=== PATIENT | female | born 1975 | race Caucasian/White ===

== ENCOUNTER → 2020-08-12 | Outpatient (CLI) | payer BC ==
[~2020-08-12] MED LIST: CPR500T PO; DICY20TA57 PO; METR500T PO
--- NOTE | 2020-08-12 12:02 | Diagnostic Imaging Report ---
INDICATION: Postmenopausal female. Family history of osteoporosis. COMPARISON: None FINDINGS: AP Spine L2-L4: [BMD (g/cm2): 0.731] [T-Score: -3.9] [Z-Score: -3.6] [BMD Previous: na] [BMD % Change: na] LT Hip Neck: [BMD (g/cm2): 0.662] [T-Score: -2.7] [Z-Score: -2.0] LT Hip Total: [BMD (g/cm2):0.641] [T-Score:-2.9] [Z-Score: -2.4] [BMD Previous: na] [BMD % Change: na] RT Hip Neck: [BMD (g/cm2):0.634] [T-Score:-2.9] [Z-Score:-2.2] RT Hip Total: [BMD (g/cm2):0.662] [T-score:-2.7] [Z-Score:-2.3] [BMD Previous:na] [BMD % Change:na] *Indicates significant change from prior examination based on 95% confidence level. World Health Organization criteria for BMD interpretation classify patients as Normal (T-score at or above -1.0), Osteopenic (T-score between -1.0 and -2.5) or Osteoporotic (T-score at or below -2.5). LIMITATIONS AND MODIFICATION: None. FRACTURE RISK (FRAX SCORE): The ten year probability of (%): Major Osteoporotic Fracture: [na] Hip Fracture: [na] IMPRESSION: 1. Osteoporosis. 2. Baseline examination. 3. See below National Osteoporosis Foundation guidelines on when to potentially initiate pharmacologic therapy. Based on the National Osteoporosis Foundation Guidelines, pharmacologic treatment should be initiated in any of the following, unless clinical conditions suggest otherwise: * Any patient with prior fragility fracture of the hip or vertebrae. A spine fracture indicates 5X risk for subsequent spine fracture and 2X risk for subsequent hip fracture. * Osteoporosis (T-score <-2.5). * Postmenopausal women and men age 50 and older with low bone mass/osteopenia (T-score between -1.0 and -2.5) by DXA and 10-year major osteoporotic fracture greater than 20% or a 10-year probability of hip fracture greater than 3%. These fracture risks are supplied above in the FRAX score, if applicable. * Clinician judgement and/or patient preferences may indicate treatment for people with 10-year fracture probabilities above or below these levels. Dictated by: Dictated on workstation # [id number]
== END ==
LOC: RAD 10:30
PROVIDERS: ATTEND Family Medicine
DX: M81.0 Age-related osteoporosis without current pathological fracture (principal)
CPT/HCPCS: 77080

== ENCOUNTER 2021-01-09 20:26 | Emergency (ER) | payer BC ==
--- NOTE | 2021-01-09 20:38 | ED GU-Female ---
General Stated Complaint: UNABLE TO URINATE,PELVIC PRESSURE Source: patient History of Present Illness Date Seen by Provider: Jan 09, 2021 Time Seen by Provider: 20:29 Initial Comments 45 yo female presents with complaints of difficulty urinating today. She states since early this am around 5 am she has only been able to urinate small dribbles of urine. She has not been able to urinate at all in last few hours. She feels like she has to urinate and has pressure but can not pass any urine. She denies any vaginal bleeding or discharge. She has been feeling fine otherwise and denies nausea, vomiting, diarrhea, fever, chills, abdominal pain other than the pressure that she feels like she needs to urinate. She has had Zyrtec 2 nights ago and took Benadryl last night for her allergies. She has had similar symptoms with urinary retention in the past after surgeries but has had no recent surgeries. Timing/Duration: this morning, getting worse Severity/Quality: moderate (pressure like she has to urinate) Location: suprapubic Radiation: none Activities at Onset: none Prior Genitourinary Problems: similar symptoms (with retention after surgeries) Associated Symptoms: No abdominal pain, No diaphoresis, No dysuria, No fever/chills, No loss of bladder control, No lower back pain, No lumps, No mass, No nausea/vomiting, No nocturia, No polyuria, No swelling, No syncope, No urinary frequency Allergies and Home Medications Allergies Coded Allergies: Codeine (Verified Allergy, Mild, redness, 05/22/13) fentanyl (Verified Adverse Reaction, Intermediate, seizure, 05/22/13) Sulfa (Sulfonamide Antibiotics) (Verified Adverse Reaction, Mild, 05/22/13) acetaminophen (Verified Adverse Reaction, Mild, rash, 05/22/13) escitalopram oxalate (Verified Adverse Reaction, Mild, N/V, 05/22/13) morphine (Verified Adverse Reaction, Mild, redness, 05/22/13) oxycodone HCl (Verified Adverse Reaction, Mild, rash, 05/22/13) prochlorperazine edisylate (Verified Adverse Reaction, Mild, 05/22/13) unknown reaction prochlorperazine maleate (Verified Adverse Reaction, Mild, 05/22/13) unknown reaction Home Medications Ciprofloxacin 500 Mg Tablet, 1 TAB PO BID Prescribed by: GENESIS CASILLAS on 05/22/131755 Dicyclomine Hcl 20 Mg Tablet, 1 EACH PO Q6H Prescribed by: GENESIS CASILLAS on 05/22/131755 Metronidazole 500 Mg Tab, 1 EACH PO BID Prescribed by: GENESIS CASILLAS on 05/22/131755 Patient Home Medication List Home Medication List Reviewed: Yes Review of Systems Review of Systems Constitutional: No chills, No fever EENTM: nose congestion (allergies) Respiratory: no symptoms reported Cardiovascular: no symptoms reported Gastrointestinal: see HPI Genitourinary: see HPI Musculoskeletal: no symptoms reported Skin: no symptoms reported Psychiatric/Neurological: No Symptoms Reported Endocrine: No Symptoms Reported Hematologic/Lymphatic: No Symptoms Reported Past Pbdksho-Ebocyd-Flcxal Hx Past Med/Social Hx: Reviewed Nursing Past Med/Soc Hx Past Medical History Surgeries: Yes Hysterectomy Reproductive Disorders: No Female Reproductive Disorders: Endometriosis 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 oz. 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 as tested, alert, oriented x 3 Skin: normal color, warm/dry Progress/Results/Core Measures Suspected Sepsis SIRS Temperature: Pulse: Respiratory Rate: Blood Pressure / Mean: Results/Orders Lab Results Laboratory Tests Test 01/09/21 20:42 Range/Units Urine Color YELLOW Urine Clarity CLEAR Urine pH 6.5 5-9 Urine Specific [place] 1.025 H 1.016-1.022 Urine Protein NEGATIVE NEGATIVE Urine Glucose (UA) NEGATIVE NEGATIVE Urine Ketones NEGATIVE NEGATIVE Urine Nitrite NEGATIVE NEGATIVE Urine Bilirubin NEGATIVE NEGATIVE Urine Urobilinogen 0.2 < = 1.0 MG/DL Urine Leukocyte Esterase NEGATIVE NEGATIVE Urine RBC (Auto) NEGATIVE NEGATIVE Urine RBC NONE /HPF Urine WBC 0-2 /HPF Urine Squamous Epithelial Cells 5-10 /HPF Urine Crystals NONE /LPF Urine Bacteria TRACE /HPF Urine Casts NONE /LPF Urine Mucus LARGE H /LPF Urine Culture Indicated NO My Orders Orders - NATAN BUENROSTRO MD Bladder Scan (01/09/21 20:30) Straight Cath For Spec.-Adult (01/09/21 20:38) Ua Culture If Indicated (01/09/21 20:38) Vital Signs/I&O 01/09/21 01/09/21 20:30 21:05 Temp 36.0 36.0 Pulse 88 88 Resp 16 16 B/P (MAP) 157/93 (114) 157/93 (114) Pulse Ox 100 100 O2 Delivery Room Air Room Air Capillary Refill : Progress Note #1: Progress Note bladder scan does not show retention and pt has around 50-60 mL of urine. She was able to provide a small urine specimen so will check to see if she might have UTI causing her to dribble and only be able to go small amounts. If that is negative will discuss with her options of IV with fluid bolus here and labs to check renal and hepatic function. Otherwise if positive for infection will treat for UTI. Progress Note #2: Time: 20:52 Progress Note UA shows mild elevation of specific gravity and some mucus but no infection. Counseled pt on results and discussed option of IV and fluid bolus but she did not want to try that yet. She would like to push fluids and see how things go in next 12 to 24 hours. Counseled that she could try AZO or Urostat over the counter to try and help with pressure sensation like she has to urinate or I could prescribe Pyridium but she also declined that. Counseled to return or seek medical care if symptoms worsen or do not improve over next 1-2 days Departure Impression Primary Impression: Urinary hesitancy Additional Impression: Decreased urine output Disposition: HOME, SELF-CARE Condition: Stable Departure-Patient Inst. Decision time for Depature: 21:01 Referrals: HEIDE DUMONT MD (PCP/Family) Primary Care Physician Patient Instructions: Bladder Irritants Add. Discharge Instructions: Continue to try drinking more water and cranberry juice to help with hydration. Avoid carbonated and caffeinated drinks as these can irritate your bladder and are not the best to hydrate you. For the pressure sensation of needing to urinate you could try AZO over the counter. This can turn your urine an orange-red color while you take the medicine. If you have worsening symptoms or do not improve within next 24 to 48 hours then seek medical care to get recheck of urine and bladder. NATAN BUENROSTRO MD Jan 09, 2021 20:38
[2021-01-09 20:49] LABS: BACTERIA,URINE TRACE /HPF; BILIRUBIN,URINE NEGATIVE (NEGATIVE); CLARITY,URINE CLEAR; COLOR,URINE YELLOW; GLUCOSE, URINE (UA) NEGATIVE (NEGATIVE); KETONES,URINE NEGATIVE (NEGATIVE); LEUKOCYTE ESTERASE ,URINE NEGATIVE (NEGATIVE); NITRITE,URINE NEGATIVE (NEGATIVE); PH,URINE 6.5 (5-9); PROTEIN,URINE NEGATIVE (NEGATIVE); WBC,URINE 0-2 /HPF
[2021-01-09 21:05] VITALS: BP 157/93
== END 2021-01-09 21:06 | disposition home or self-care (01) ==
LOC: EDUNIT# 20:26 → ER FS 20:28
DX: R39.11 Hesitancy of micturition (principal); R39.12 Poor urinary stream; Z88.5 Allergy status to narcotic agent; Z88.2 Allergy status to sulfonamides; Z88.8 Allergy status to other drugs, medicaments and biological substances
CPT/HCPCS: 81000; 99283

== ENCOUNTER 2021-11-04 17:29 | Emergency (ER) | payer BC ==
[~2021-11-04] VITALS: Ht 170 cm; Wt 54.0 kg
[2021-11-04] MEDS ORDERED: KETOROLAC 30 MG/ML VIAL IVP STA (17:51)
[2021-11-04] MEDS ORDERED: NS IV 1000 ML 1,000 ML IV STA (17:51)
[2021-11-04] MEDS ORDERED: FAMOTIDINE 20MG/2ML IV (PEPCID) IV STA (17:51)
--- NOTE | 2021-11-04 17:56 | ED GI ---
General Chief Complaint: Abdominal/GI Problems Stated Complaint: GUM SWELLING,CP,VOMITTING,RT SIDE ABD PAIN Nursing Triage Note: PT REPORTS RIGHT UPPER QUAD PAIN THAT WRAPS AROUND TO HER BACK FOR 5 DAYS. REPORTS IT STARTED AFTER SHE ATE A JALAPENO BURGER. REPORTS VOMITING AFTER ANY MEALS AND LOOSE GREEN STOOLS. Source of Information: Patient Exam Limitations: No Limitations History of Present Illness Date Seen by Provider: Nov 04, 2021 Time Seen by Provider: 17:43 Initial Comments Here with right upper quadrant abdominal pain this been going on for the last 5 days. She was seen by Dr. Herzog and has appointment for ultrasound tomorrow due to concerns for gallbladder. Noticed that she has had some loose stools that are green and pain is worse anytime she eats. Has had vomiting after any meal. Timing/Duration: 5-6 Days, Getting Worse Severity/Quality: Moderate, Aching Location: RUQ Radiation: Back Activities at Onset: None Modifying Factors: Worsens With Eating Associated Symptoms: Back Pain; No Chest Pain, No Fever/Chills; Heartburn, Nausea/Vomiting; No Shortness of Air, No Weakness Allergies and Home Medications Allergies Coded Allergies: codeine (Verified Allergy, Mild, redness, 05/22/13) fentanyl (Verified Adverse Reaction, Intermediate, seizure, 05/22/13) Sulfa (Sulfonamide Antibiotics) (Verified Adverse Reaction, Mild, 05/22/13) escitalopram oxalate (Verified Adverse Reaction, Mild, N/V, 05/22/13) morphine (Verified Adverse Reaction, Mild, redness, 05/22/13) oxycodone HCl (Verified Adverse Reaction, Mild, rash, 05/22/13) prochlorperazine edisylate (Verified Adverse Reaction, Mild, 05/22/13) unknown reaction prochlorperazine maleate (Verified Adverse Reaction, Mild, 05/22/13) unknown reaction Patient Home Medication List Home Medication List Reviewed: Yes Ciprofloxacin (Cipro) 500 Mg Tablet, 1 TAB PO BID Prescribed by: GENESIS CASILLAS on 05/22/131755 Dicyclomine Hcl (Bentyl) 20 Mg Tablet, 1 EACH PO Q6H Prescribed by: GENESIS CASILLAS on 05/22/131755 Metronidazole (Flagyl 500 Mg) 500 Mg Tab, 1 EACH PO BID Prescribed by: GENESIS CASILLAS on 05/22/131755 Review of Systems Review of Systems Constitutional: see HPI EENTM: No Nose Congestion, No Throat Pain Respiratory: Denies Cough, Denies Shortness of Air Cardiovascular: No Symptoms Reported Gastrointestinal: Abdominal Pain, Diarrhea, Nausea, Vomiting Genitourinary: No Symptoms Reported Musculoskeletal: back pain; No muscle pain Skin: no symptoms reported Psychiatric/Neurological: No Symptoms Reported All Other Systems Reviewed Negative Unless Noted: Yes Past Zstqsqg-Obazmj-Hdrbgx Hx Patient Social History Tobacco Use?: No Use of E-Cig and/or Vaping dev: No Substance use?: No Alcohol Use?: No Pt feels they are or have been: No Past Medical History Surgery/Hospitalization HX: TONSILS, APPY, HYST Surgeries: Yes Hysterectomy Reproductive Disorders: No Female Reproductive Disorders: Endometriosis 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 oz. 49.118939zl; 18.00 BMI Method:Stated General Appearance: WD/WN, no apparent distress HEENT: PERRL/EOMI, pharynx normal Neck: full range of motion, supple Respiratory: lungs clear, normal breath sounds Cardiovascular: regular rate, rhythm, no murmur Gastrointestinal: soft, tenderness (Right upper quadrant) Extremities: non-tender, normal inspection Back: normal inspection, no CVA tenderness, no vertebral tenderness Neurologic/Psychiatric: alert, oriented x 3 Skin: normal color, warm/dry Progress/Results/Core Measures Results/Orders Lab Results Laboratory Tests Test 11/04/21 17:49 Range/Units White Blood Count 6.9 4.3-11.0 10^3/uL Red Blood Count 4.61 3.80-5.11 10^6/uL Hemoglobin 13.7 11.5-16.0 g/dL Hematocrit 40 35-52 % Mean Corpuscular Volume 86 80-99 fL Mean Corpuscular Hemoglobin 30 25-34 pg Mean Corpuscular Hemoglobin Concent 34 32-36 g/dL Red Cell Distribution Width 11.9 10.0-14.5 % Platelet Count 224 130-400 10^3/uL Mean Platelet Volume 10.1 9.0-12.2 fL Immature Granulocyte % (Auto) 0 % Neutrophils (%) (Auto) 49 42-75 % Lymphocytes (%) (Auto) 40 12-44 % Monocytes (%) (Auto) 9 0-12 % Eosinophils (%) (Auto) 2 0-10 % Basophils (%) (Auto) 1 0-10 % Neutrophils # (Auto) 3.4 1.8-7.8 10^3/uL Lymphocytes # (Auto) 2.7 1.0-4.0 10^3/uL Monocytes # (Auto) 0.6 0.0-1.0 10^3/uL Eosinophils # (Auto) 0.1 0.0-0.3 10^3/uL Basophils # (Auto) 0.1 0.0-0.1 10^3/uL Immature Granulocyte # (Auto) 0.0 0.0-0.1 10^3/uL Sodium Level 140 135-145 MMOL/L Potassium Level 3.8 3.6-5.0 MMOL/L Chloride Level 104 98-107 MMOL/L Carbon Dioxide Level 23 21-32 MMOL/L Anion Gap 13 5-14 MMOL/L Blood Urea Nitrogen 15 7-18 MG/DL Creatinine 0.87 0.60-1.30 MG/DL Estimat Glomerular Filtration Rate 84 BUN/Creatinine Ratio 17 Glucose Level 111 H 70-105 MG/DL Calcium Level 9.8 8.5-10.1 MG/DL Corrected Calcium 9.4 8.5-10.1 MG/DL Magnesium Level 2.3 1.6-2.4 MG/DL Total Bilirubin 1.0 0.1-1.0 MG/DL Aspartate Amino Transf (AST/SGOT) 14 5-34 U/L Alanine Aminotransferase (ALT/SGPT) 12 0-55 U/L Alkaline Phosphatase 128 40-136 U/L C-Reactive Protein < 0.30 <0.50 MG/DL Total Protein 7.7 6.4-8.2 GM/DL Albumin 4.5 3.2-4.5 GM/DL Lipase 32 8-78 U/L My Orders Orders - ANEL PEPE MD Cbc With Automated Diff (11/04/21 17:51) Comprehensive Metabolic Panel (11/04/21 17:51) Lipase (11/04/21 17:51) Magnesium (11/04/21 17:51) Crp Fs (11/04/21 17:51) Ondansetron Injection (Zofran Injectio (11/04/21 18:00) Ns Iv 1000 Ml (Sodium Chloride 0.9%) (11/04/21 17:51) Famotidine Injection (Pepcid Injection) (11/04/21 17:51) Ed Iv/Invasive Line Start (11/04/21 17:51) Ketorolac Injection (Toradol Injection) (11/04/21 17:51) Hydromorphone Injection (Dilaudid Inject (11/04/21 18:00) Pantoprazole Injection (Protonix Injecti (11/04/21 18:45) Medications Given in ED Current Medications Medications Dose Ordered Sig/Thalia Route Start Time Stop Time Status Last Admin Dose Admin Hydromorphone HCl 0.25 mg ONCE ONCE IV 11/04/21 18:00 11/04/21 18:01 DC 11/04/21 18:02 0.25 MG Ondansetron HCl 4 mg ONCE ONCE IVP 11/04/21 18:00 11/04/21 18:01 DC 11/04/21 17:59 4 MG Pantoprazole 40 mg ONCE ONCE IV 11/04/21 18:45 11/04/21 18:46 DC 11/04/21 18:46 40 MG Vital Signs/I&O 11/04/21 11/04/21 17:34 19:00 Temp 36.3 Pulse 75 60 Resp 18 17 B/P (MAP) 149/79 (102) 126/70 Pulse Ox 99 100 O2 Delivery Room Air Room Air Blood Pressure Mean: 102 Progress Progress Note : Progress Note Seen and evaluated. IV, labs, normal saline 1 L bolus, Zofran 4 mg IV, Toradol 30 mg IV, Dilaudid 0.25 mg IV and Pepcid 20 mg IV ordered. Monitor patient. 1 924: I have also added Protonix 40 mg IV. Overall she is currently better now. I have discussed the case with Dr. Ibrahim and he would like to see her on Tuesday for recheck and further evaluation. She does have ultrasound scheduled tomorrow which she will keep that appointment. Labs are nonconcerning. This still could be gallstones versus ulcerative disease. We will continue acid reduction on her as an outpatient and wait for results from the ultrasound and she will follow up with Dr. Ibrahim. Overall she feels better to go home. Discharged home with return precautions. Patient verbalized understanding of instructions and agr eement with plan. Departure Impression Primary Impression: Right upper quadrant abdominal pain Disposition: HOME, SELF-CARE Condition: Improved Departure-Patient Inst. Decision time for Depature: 19:25 Referrals: KENNETH HERZOG MD (PCP) Primary Care Physician HEIDE DUMONT MD (Family) Primary Care Physician ALLAN IBRAHIM DO Patient Instructions: Gallstones, Nausea and Vomiting, Adult ED, Peptic Ulcers (DC), Severe Abdominal Pain, Adult (DC) Add. Discharge Instructions: All discharge instructions reviewed with patient and/or family. Voiced u nderstanding. Clear or light diet over the next several days until you are seen by Dr. Ibrahim. Avoid fatty or spicy foods. Avoid red foods. You should take aiex-nzn-ypemibm omeprazole 20 mg daily. You may purchase this and a 6-week pack at the pharmacy and take this for 6 weeks. You may also take Pepcid or the generic famotidine, 20 mg once or twice daily as needed for increased acid. You should do the this at least for the next 7 days and then as needed. Follow-up with Dr. Ibrahim next Tuesday. Call his office in the morning for appointment. If you are having problems with that appointment, call Dr. Ibrahim directly at [phone]. He will help you get the appointment. Keep ultrasound appointment and let them know to have results sent to Dr. Ibrahim. Return for worse pain, fever, vomiting, weakness, breathing problems or other concerns as needed. Scripts Hydrocodone Bit/Acetaminophen (HYDROcodone/APAP 5 MG/325 MG TAB) 1 Tab Tab 1 TAB PO Q6H for Pain, #8 TAB 0 Refills Prov: ANEL PEPE MD 11/04/21 Copy Copies To 1: ALLAN IBRAHIM DO ANEL PEPE MD Nov 04, 2021 17:56
[2021-11-04 17:59] LABS: BASOPHILS # (AUTO) 0.1 10^3/uL (0.0-0.1); BASOPHILS % (AUTO) 1 % (0-10); EOSINOPHILS # (AUTO) 0.1 10^3/uL (0.0-0.3); EOSINOPHILS % (AUTO) 2 % (0-10); HEMATOCRIT 40 % (35-52); HEMOGLOBIN 13.7 g/dL (11.5-16.0); LYMPHOCYTES # (AUTO) 2.7 10^3/uL (1.0-4.0); LYMPHOCYTES % (AUTO) 40 % (12-44); MEAN CORPUSCULAR HEMOGLOBIN 30 pg (25-34); MEAN CORPUSCULAR HGB CONC 34 g/dL (32-36); MEAN CORPUSCULAR VOLUME 86 fL (80-99); MEAN PLATELET VOLUME 10.1 fL (9.0-12.2); MONOCYTES # (AUTO) 0.6 10^3/uL (0.0-1.0); MONOCYTES % (AUTO) 9 % (0-12); NEUTROPHILS # (AUTO) 3.4 10^3/uL (1.8-7.8); NEUTROPHILS % (AUTO) 49 % (42-75); PLATELET COUNT 224 10^3/uL (130-400); WHITE BLOOD COUNT 6.9 10^3/uL (4.3-11.0)
[2021-11-04] MEDS ORDERED: ONDANSETRON 4 MG/2 ML (SDV) Z0FRAN IVP ONE (18:00)
[2021-11-04] MEDS ORDERED: HYDROmorphone 2 MG/ML VIAL (DILAUDID) IV ONE (18:00)
[2021-11-04 18:19] LABS: ALANINE AMINOTRANSFERASE 12 U/L (0-55); ALBUMIN 4.5 GM/DL (3.2-4.5); ALKALINE PHOSPHATASE 128 U/L (40-136); BUN/CREATININE RATIO 17; CALCIUM 9.8 MG/DL (8.5-10.1); CARBON DIOXIDE 23 MMOL/L (21-32); CHLORIDE 104 MMOL/L (98-107); CREATININE SERUM 0.87 MG/DL (0.60-1.30); GFR ESTIMATED 84; GLUCOSE 111 MG/DL (70-105); MAGNESIUM 2.3 MG/DL (1.6-2.4); POTASSIUM 3.8 MMOL/L (3.6-5.0); SODIUM 140 MMOL/L (135-145); TOTAL PROTEIN 7.7 GM/DL (6.4-8.2)
[2021-11-04 18:20] LABS: LIPASE 32 U/L (8-78)
[2021-11-04] MEDS ORDERED: PANTOPRAZOLE 40 MG (PROTONIX) VIAL IV ONE (18:45)
[2021-11-04] MEDS ORDERED: ACHD5005 PO (19:28)
[2021-11-04 19:36] VITALS: BP 126/70
== END 2021-11-04 19:36 | disposition home or self-care (01) ==
LOC: EDUNIT# 17:29 → ER FS 17:30
DX: R10.11 Right upper quadrant pain (principal)
CPT/HCPCS: 36415; 80053; 83690; 83735; 85025; 86141

== ENCOUNTER → 2021-11-16 | Outpatient (CLI) | payer BC ==
[~2021-11-16] MED LIST changes: +ACHD5005 PO; +CATHETER FLUSH 10 ML SYR IV PRN
--- NOTE | 2021-11-16 12:23 | Diagnostic Imaging Report ---
INDICATION: Right upper quadrant pain. 5.1 mCi tech 99M mebrofenin and 8 ounces of Ensure were utilized. FINDINGS: There is prompt uptake of isotope in the liver and gallbladder with normal flow into the small bowel. Following fatty meal stimulation the ejection fraction of the gallbladder is calculated to be 58% at 50 minutes. IMPRESSION: Normal hepatobiliary study with normal-appearing ejection fraction. Dictated by: Dictated on workstation # [id number]
== END ==
LOC: CARD 09:34
PROVIDERS: ATTEND Surgery
DX: R10.11 Right upper quadrant pain (principal)
CPT/HCPCS: 78227; A9537

== ENCOUNTER 2021-12-07 05:32 | Outpatient (CLI) | payer BC ==
[~2021-12-07] VITALS: Ht 170.2 cm; Wt 56.7 kg
[~2021-12-07 05:32] MED LIST changes: -CATHETER FLUSH 10 ML SYR IV PRN
[2021-12-07] MEDS ORDERED: LORA-405 SL (13:58)
[2021-12-07] MEDS ORDERED: SUCR1TAB PO (13:58)
[2021-12-07] MEDS ORDERED: PANT40TA52 PO (13:58)
[2021-12-07] MEDS ORDERED: FAMO20TA3 PO (13:58)
== END 2021-12-07 15:41 | disposition home or self-care (01) ==
LOC: PREOP 05:32
PROVIDERS: ATTEND Surgery
DX: Z01.818 Encounter for other preprocedural examination (principal)

== ENCOUNTER → 2021-12-11 | Outpatient (CLI) | payer BC ==
[~2021-12-11] MED LIST changes: +FAMO20TA3 PO; +LORA-405 SL; +PANT40TA52 PO; +SUCR1TAB PO
== END ==
LOC: LAB FS 09:57
PROVIDERS: ATTEND Surgery
DX: Z12.11 Encounter for screening for malignant neoplasm of colon (principal); R10.13 Epigastric pain; Z20.822 Contact with and (suspected) exposure to COVID-19
CPT/HCPCS: 87636

== ENCOUNTER 2021-12-15 07:13 | Day surgery (SDC) | payer BC ==
[~2021-12-15] VITALS: Ht 170.2 cm; Wt 56.7 kg
[2021-12-15] MEDS ORDERED: LACTATED RINGERS 1,000 ML IV STA (07:23)
[2021-12-15] MEDS ORDERED: LACTATED RINGERS 1,000 ML IV ONE (07:27)
[2021-12-15] MEDS ORDERED: HURRICAINE EXT TUBE (BENZOCAINE) XX PRN (07:30)
[2021-12-15 07:36] VITALS: BP 130/76
[2021-12-15] MEDS ORDERED: PROPOFOL INJECTION 50 ML IV ONE (08:07)
[2021-12-15] MEDS ORDERED: MIDAZOLAM 2 MG/2 ML (VERSED) VIAL ONE (08:07)
--- NOTE | 2021-12-15 08:32 | Progress Note-Pre Operative ---
Pre-Operative Progress Note H&P Reviewed The H&P was reviewed, patient examined and no changes noted. Date Seen by Provider: Dec 15, 2021 Time Seen by Provider: 08:32 Date H&P Reviewed: Dec 15, 2021 Time H&P Reviewed: 08:32 Pre-Operative Diagnosis: screening colonoscopy, epigastric abd pain ALLAN IBRAHIM DO Dec 15, 2021 08:32
--- NOTE | 2021-12-15 09:29 | Discharge Inst-Simple/Standard ---
Discharge Inst-Standard Patient Instructions/Follow Up Plan of Care/Instructions/FU: 2 weeks [place] Activity as Tolerated: Yes Discharge Diet: Regular Diet ALLAN IBRAHIM DO Dec 15, 2021 09:29
[2021-12-15 09:30] VITALS: BP 104/64
--- NOTE | 2021-12-15 09:31 | Progress Note-Post Operative ---
Post-Operative Progess Note Surgeon (s)/Rib Matcher And Fitter (s) Surgeon ALLAN IBRAHIM DO Rib Matcher And Fitter: na Pre-Operative Diagnosis screening colonoscopy, epigastric abd pain Post-Operative Diagnosis mucosal change stomach, colonoscopy normal Procedure & Operative Findings Date of Procedure 12/15/21 Procedure Performed/Findings egd c biopsies, colonoscopy Anesthesia Type per mda Estimated Blood Loss Estimated blood loss (mL): na Specimens/Packing Specimens Removed antrum, body, ge ALLAN IBRAHIM DO Dec 15, 2021 09:31
[2021-12-15 09:35] VITALS: BP 119/66
[2021-12-15 10:05] VITALS: BP 119/81
[2021-12-15 10:10] VITALS: BP 119/81
--- NOTE | 2021-12-15 10:20 | Anesthesia-General Post-Op ---
MAC Patient Condition Mental Status/LOC: Same as Preop Cardiovascular: Satisfactory Nausea/Vomiting: Absent Respiratory: Satisfactory Pain: Controlled Complications: Absent Post Op Complications Complications None Follow Up Care/Instructions Patient Instructions None needed. Anesthesiology Discharge Order Discharge Order Patient is doing well, no complaints, stable vital signs, no apparent adverse anesthesia problems. ALPHONSE CHOA DO Dec 15, 2021 10:20
--- NOTE | 2021-12-15 10:57 | OPERATIVE REPORT ---
DATE OF SERVICE: 12/15/2021 PREOPERATIVE DIAGNOSES: Epigastric abdominal pain, screening colonoscopy. POSTOPERATIVE DIAGNOSIS: Normal colon, mucosal change of the stomach. PROCEDURE: EGD with biopsies, colonoscopy. SURGEON: Allan Sands DO ANESTHESIA: Per MDA. ESTIMATED BLOOD LOSS: None. COMPLICATIONS: None. INDICATIONS: The patient is a 46-year-old female with epigastric abdominal pain needing screening colonoscopy. She understands risks and benefits of procedure and wishes to proceed. Consent was signed in the chart. DESCRIPTION OF PROCEDURE: The patient was taken to the endoscopy suite, placed in left lateral recumbent position. Timeout was performed. Scope was inserted in mouth, down the esophagus, stomach and into the duodenum without difficulty. There were no polyps, masses or ulcerations within the duodenum. Scope was slowly retracted back into the stomach where it was further insufflated. No polyps, masses or ulcerations. Biopsy of the antrum was obtained. In the body, some mucosal changes, biopsy of this area was obtained. Scope was retroflexed noting no other pathology. Scope was returned to its normal position, slowly withdrawn to distal esophagus. Biopsy of GE junction was obtained. No polyps, masses or ulcerations. Scope was slowly retracted back until completely removed. Digital rectal exam was performed. No palpable polyps, masses or ulcerations. Scope was inserted in the rectum and advanced all the way to cecum with minimal difficulty. Prep was adequate. Scope was slowly retracted back. No polyps, masses or ulcerations within the cecum, ascending, transverse, descending and sigmoid colon. Once in the rectum, scope was retroflexed noting no other pathology. Scope was returned to its normal position, slowly withdrawn until completely removed. The patient tolerated the procedure well without any complications. She was taken to recovery room in stable condition. RECOMMENDATIONS: The patient will need repeat colonoscopy in 10 years unless family history of colon cancer, which could be 5 years. Any issues before that be seen at that time. The patient will follow up on biopsies. We will not make any other changes in medications at this time until biopsy results. Job ID: [id number] DocumentID: [id number] Dictated Date: 12/15/2021 09:33:41 Embosser Apprentice Date: 12/15/2021 10:56:56 Dictated By: ALLAN SANDS DO
== END 2021-12-15 10:11 | disposition home or self-care (01) ==
LOC: ENDO 07:13
PROVIDERS: ATTEND Surgery
DX: Z12.11 Encounter for screening for malignant neoplasm of colon (principal); R10.13 Epigastric pain